=== PATIENT | female | born 1950 | race Caucasian/White ===

== ENCOUNTER 2018-02-27 17:32 | Emergency (ER) | payer MEDICARE ==
[~2018-02-27] VITALS: Ht 154.9 cm; Wt 95.3 kg
[~2018-02-27 17:32] MED LIST: B12-METHYL1000 MCG PO; CLONIDINE0.2 MG PO; D3-55000 IU PO; FLUOXETINE20 MG PO; NORCO 5-325 TA1 EACH PO; PROZAC20 MG PO; TRIAMTERENE/HCT1 CAP PO; ZOFRAN ODT4 MG SL; [UNRECOGNIZED DRUG - OTHER] PO
[2018-02-27 20:25] LABS: BASO # 0.1 10*3/uL (0.0-0.1); BASO % 0.4 % (0.0-1.0); EOS # 0.6 10*3/uL (0.0-0.4); EOS % 5.3 % (1.0-4.0); HEMATOCRIT 40.8 % (37.0-47.0); LYMPH # 2.8 10*3/uL (1.3-4.4); LYMPH % 25.1 % (27.0-41.0); MEAN CELL VOLUME 91.5 fl (81.0-99.0); MEAN CORPUSCULAR HGB 31.4 pg (27.0-31.0); MEAN CORPUSCULAR HGB CONC 34.3 g/dl (33.0-37.0); MONO # 0.7 10*3/uL (0.1-1.0); MONO % 6.6 % (3.0-9.0); NEUT % 62.3 % (47.0-73.0); PLATELET COUNT AUTOMATED 261 10*3/uL (130-400); RED BLOOD COUNT 4.46 10*6/uL (4.10-5.10); RED CELL DISTRI WIDTH 13.9 % (0-14.5); WHITE BLOOD COUNT 11.2 10*3/uL (4.8-10.8)
[2018-02-27 20:49] LABS: BUN 20 mg/dl (7-24); CHLORIDE 101 mmol/L (98-107); CREATININE 1.02 mg/dL (0.55-1.02); POTASSIUM 4.2 mmol/L (3.5-5.1); SODIUM 137 mmol/L (136-145)
== END 2018-02-27 20:50 | disposition home or self-care (01) ==
LOC: ED 17:32
PROVIDERS: Student in an Organized Health Care Education/Training Program
DX: S09.90XA Unspecified injury of head, initial encounter (principal); R11.0 Nausea; M54.2 Cervicalgia; M25.521 Pain in right elbow; Z79.899 Other long term (current) drug therapy; W01.0XXA Fall on same level from slipping, tripping and stumbling without subsequent striking against object, initial encounter; Y93.H3 Activity, building and construction; Y92.22 Religious institution as the place of occurrence of the external cause; Y99.8 Other external cause status

== ENCOUNTER 2018-10-24 06:51 | Inpatient (IN) | payer MEDICARE ==
[~2018-10-24] VITALS: Ht 154.9 cm; Wt 92.5 kg
[2018-10-24] VITALS (14 sets, daily range): BP systolic 160–238; BP diastolic 73–100
--- NOTE | ~2018-10-24 | EKG ---
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
--- NOTE | ~2018-10-24 | EKG ---
[place], [place] ELECTROCARDIOGRAM REPORT NAME: LATRICIA ALVARADO UNIT #: [id number] ROOM: 412 DOCTOR: AURORA DRAFT REPORT BIRTHDATE: [birth year] [facility] Test Date: 2018-10-24 Test Time: 15:26:32 Pat Name: LATRICIA ALVARADO Department: Room: [facility] 2 Gender: F A R Specialist: : 1950 Requested By: JANICE REY Order Number: [id number] Reading MD: Luiz Calvert MD Measurements Intervals [place] Rate: 85 P: 43 FL: 154 QRS: -24 QRSD: 86 T: 30 QT: 376 QTc: 447 Interpretive Statements Sinus rhythm Abnormal R-wave progression, late transition LVH with secondary repolarization abnormality Baseline wander in lead(s) V3,V4 Compared to ECG 10/21/2018 01:42:36 Left ventricular hypertrophy now present Early repolarization now present Electronically Signed On 10-24-2018 15:41:57 PDT by Luiz Calvert MD CM:EKGRPT:ELECTROCARDIOGRAM REPORT [id number] 1541 JANICE TAPIA DRAFT REPORT JANICE REY DO
--- NOTE | ~2018-10-24 | EKG ---
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.[place] : 1950 Requested By: JANICE MONIQUE Order Number: [id number] Reading MD: Luiz Calvert MD Measurements Intervals [place] Rate: 122 P: 68 NC: 140 QRS: -30 QRSD: 75 T: 36 QT: 329 QTc: 469 Interpretive Statements Sinus tachycardia Probable left atrial enlargement Low voltage, precordial leads Consider anterior infarct Minimal ST depression, lateral leads Compared to ECG 10/24/2018 15:26:32 Low QRS voltage now present Myocardial infarct finding now present ST (T wave) deviation now present Sinus rhythm no longer present Left ventricular hypertrophy no longer present Early repolarization no longer present Electronically Signed On 10-26-2018 17:40:49 PDT by Luiz Calvert MD CM:EKGRPT:ELECTROCARDIOGRAM REPORT [id number] 1740 JANICE TAPIA DRAFT REPORT JANICE MONIQUE DO
--- NOTE | ~2018-10-24 | CON ---
[place], [place] REPORT OF CONSULTATION NAME: LATRICIA ALVARADO UNIT #: [id number] ROOM: [facility] DOCTOR: TATO SAWANT CNP BIRTHDATE: [birth year] DOS: 10/26/2018 CHIEF COMPLAINT: "I am really upset. I have been here a week and I am not getting any answers." HISTORY OF PRESENT ILLNESS: This is a 68-year-old white female who presented to the hospital for elevated blood pressure and headache. The patient noted that she had developed a headache and her blood pressure was going up. She was hospitalized for similar symptoms and discharged on 10/22/2018. During that admission, she saw Dr. Carlin for Nephrology as well. The patient had reported that she had been started on lisinopril and had been taking that medication along with clonidine and Dyazide. The patient had reported that she developed nausea and vomiting in the ER. The patient was admitted from the Emergency Room with hypertensive emergency. I spoke with Dr. Carlin who states that she consulted Psychiatry due to the fact that the patient appears to be anxious at times and they are trying to decide if anxiety seems to be correlated with her elevated blood pressure; however, she does have periods of not being anxious and her blood pressure is elevated. The patient has reported that the last few years, she has had increased stress and at times she started to feel anxious and panicky and feels as if she needs to get out of the situation and when she removes herself from the situation her anxiety resolves. The patient's daughter had confirmed with Dr. Carlin that the patient has shown increased anxiety when it comes to shopping and being around a lot of people. It has been more difficult to get her into these type of social situations over the last 2 years. MENTAL STATUS: The patient is alert and oriented to person, place and time. She was somewhat irritable and agitated. There was no overt candy or hypomania noted. No delusions or paranoia noted. No psychotic symptoms noted. No auditory or visual hallucinations noted. Her mood was irritable. Her affect was congruent with her mood. The patient's insight and judgment are fair. Her speech was clear, normal rate and tone. Eye contact was good. The patient appears to be in no acute distress. DIAGNOSIS: Generalized anxiety disorder. PLAN: After meeting with the patient, I discussed trying a p.r.n. Ativan for her anxiety. The patient reports that she is on Prozac and is unsure of what the dosage is, however, she has been on it for years. She declines any change to her Prozac dose and she also declines trying p.r.n. Ativan. She reports that she will discuss this with her family, but does not feel that she needs our services at this time. I discussed my consult with the patient with Dr. Carlin. Should you require any further intervention, please feel free to reconsult us at any time. [place], [place] REPORT OF CONSULTATION NAME: LATRICIA ALVARADO UNIT #: [id number] ROOM: [facility] DOCTOR: TATO SAWANT CNP BIRTHDATE: [birth year] Tato Sawant CNP CM:CONSTR:REPORT OF CONSULTATION 1543 10/27/18 0347 interface
--- NOTE | ~2018-10-24 | EKG ---
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
--- NOTE | ~2018-10-24 | EKG ---
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[place] : 1950 Requested By: KELLE RO Order Number: [id number] Reading MD: Luiz Calvert MD Measurements Intervals [place] Rate: 91 P: 50 MT: 136 QRS: -30 QRSD: 72 T: 37 QT: 340 QTc: 419 Interpretive Statements Sinus rhythm Probable left atrial enlargement Left axis deviation Anteroseptal infarct, age indeterminate Compared to ECG 10/24/2018 15:26:32 Left-axis deviation now present Myocardial infarct finding now present Left ventricular hypertrophy no longer present Early repolarization no longer present Electronically Signed On 10-26-2018 17:39:12 PDT by Luiz Calvert MD CM:EKGRPT:ELECTROCARDIOGRAM REPORT [id number] KELLE RO MD EPIPHANY DRAFT REPORT KELLE RO MD
[~2018-10-24 06:51] MED LIST changes: +ZESTRIL10 MG PO
--- NOTE | 2018-10-24 07:39 | NUR ---
LYING IN BED RESTING WITH EYES CLOSED. FAMILY AT BEDSIDE. SIDE RAILS UP, CALL LIGHT IN REACH.
[2018-10-24 07:42] LABS: BASO % 0.4 % (0.0-1.0); EOS # 0.5 10*3/uL (0.0-0.4); EOS % 6.7 % (1.0-4.0); HEMATOCRIT 40.7 % (37.0-47.0); LYMPH # 2.1 10*3/uL (1.3-4.4); LYMPH % 30.6 % (27.0-41.0); MEAN CELL VOLUME 90.6 fl (81.0-99.0); MEAN CORPUSCULAR HGB 31.2 pg (27.0-31.0); MEAN CORPUSCULAR HGB CONC 34.4 g/dl (33.0-37.0); MEAN PLATELET VOLUME 9.1 fl (9.6-12.3); MONO # 0.6 10*3/uL (0.1-1.0); MONO % 9.2 % (3.0-9.0); NEUT # 3.7 10*3/uL (2.3-7.9); PLATELET COUNT AUTOMATED 296 10*3/uL (130-400); RED BLOOD COUNT 4.49 10*6/uL (4.10-5.10); RED CELL DISTRI WIDTH 13.6 % (0-14.5)
--- NOTE | 2018-10-24 08:00 | NUR ---
HEADACHE BETTER PER PT. "I STILL HAVE IT BUT IT'S BETTER".
[2018-10-24 08:05] LABS: BUN 14 mg/dl (7-24); CHLORIDE 103 mmol/L (98-107); CREATININE 0.96 mg/dL (0.55-1.02); POTASSIUM 3.6 mmol/L (3.5-5.1); SODIUM 137 mmol/L (136-145); TROPONIN I 0.027 ng/ml (<0.045)
--- NOTE | 2018-10-24 09:07 | NUR ---
VISITING WITH FAMILY AT BEDSIDE. CONTINUES TO HAVE MILD HEADACHE.
--- NOTE | 2018-10-24 09:22 | NUR ---
UP TO BATHROOM, TOLERATED WELL. FAMILY AT BEDSIDE
--- NOTE | 2018-10-24 09:46 | NUR ---
LYING IN BED RESTING, EYES CLOSED. TELLS ME "HEADACHE STILL THERE".
--- NOTE | 2018-10-24 10:08 | NUR ---
PT HAD APPROX 200 CC EMESIS OF LIQUID
--- NOTE | 2018-10-24 10:30 | NUR ---
PT CONTINUES TO BE NAUSEATED DESPITE ZOFRAN. DR. ARMENDARIZ AT BEDSIDE
--- NOTE | 2018-10-24 11:00 | NUR ---
A 68, admitted to , under the services of JOCELYNE Casey DO with a diagnosis of HYPERTENSIVE EMERGENCY. Chief complaint is ELEVATED BP, NAUSEA. Patient arrived via wheel chair from ER. Monitor applied. Initial assessment completed. Vital signs taken and recorded. JOCELYNE CASEY DO notified of admission to the unit. Orders received. See assessment for past medical history, medications and allergies. Patient and/or family oriented to unit. [facility] visitation policy reviewed. Clothing/patient valuable form completed. TARA HOANG
--- NOTE | 2018-10-24 11:46 | NUR ---
DR. RO NOTIFIED OF CONSULT
--- NOTE | 2018-10-24 15:26 | NUR ---
DR. REY NOTIFIED OF BP 206/100 AND CONTINUING TO VOMIT. HE ASKS FOR DR. RO TO BE NOTIFIED.
--- NOTE | 2018-10-24 15:45 | NUR ---
SPOKE WITH DR. RO REGARDING ELEVATED BP. SHE AGREES WITH GIVING PHENERGAN, TORADOL, AND BENADRYL IV.
--- NOTE | 2018-10-24 17:01 | NUR ---
SLEEPING WITH EYES CLOSED.
--- NOTE | 2018-10-24 17:49 | NUR ---
WALKED INTO BATHROOM WITH ASSISTANCE. COMPLAINS OF A HEADACHE.
--- NOTE | 2018-10-24 17:50 | NUR ---
BP 178/76 MANUALLY
--- NOTE | 2018-10-24 20:10 | NUR ---
PT RESTING IN BED WITH EYES CLOSED. RESP-EASY AND REGULAR. IVF INFUSING WITH NO PROBLEM. C/O HEADACHE, RATES PAIN 6 ON PAIN SCALE 0-10. MEDICATED WITH MORPHINE IV PER PRN ORDER, SEE EMAR. CALL LIGHT IN REACH. SEE SHIFT ASSESSMENT.
--- NOTE | 2018-10-24 21:00 | NUR ---
RESTING IN BED WITH EYES CLOSED. RESP-EASY AND REGULAR. MEDICATION SEEMS TO BE EFFECTIVE. WILL CON'T TOMONITOR. CALL LIGHT IN REACH.
--- NOTE | 2018-10-24 22:00 | NUR ---
PT RESTING IN BED. RESP-EASY AND REGULAR. STATES MEDIATION HELPED. RATES PAIN 3 ON PAIN SCALE 0-10. IVF INFUSING WITH NO PROBLEM. CALL LIGHT IN REACH.
--- NOTE | 2018-10-24 22:30 | NUR ---
SPOKE WITH DR. MONIQUE MADE AWARE BP. HE WANTS ME TO CALL DR. RO.
--- NOTE | 2018-10-24 22:38 | NUR ---
SPOKE WITH DR. RO REGARDING BP 188/74,190/74, SHE WANT STO SLOWLY BRING BP DOWN. SHE WILL CALL DR. MONIQUE.
--- NOTE | 2018-10-24 22:52 | NUR ---
PERDR. MONIQUE GIVE HYDRALAZINE 5MG, SEE EMAR.
--- NOTE | 2018-10-24 22:56 | NUR ---
GAVE 5MG HYDRALAZINE IV, HR-98-107. BP 188/72 MANUALLY. CALL LIGHT IN REACH. WILL CON'T TO MONITOR.
[2018-10-25] VITALS (11 sets, daily range): BP systolic 118–229; BP diastolic 63–118
--- NOTE | 2018-10-25 00:40 | NUR ---
DR. MONIQUE AT [facility] AWARE DR. RO CALLED AND WANTEDTO ADD LABETOLOL BUT NOT AVAILABLE TO ADD IN EMAR. DR. RO ALSO AWARE. ALSO MADE HIM AWARE TEMP 100 ORALLY.
--- NOTE | 2018-10-25 00:45 | NUR ---
PT RESTING IN BED WITH EYES CLOSED. AWAKENS EASILY. MEDICATED WITH TYLENOL TWO TAB PO PER PRN ORDER, FOR C/O HEADACHE RATES PAIN 3 ON PAIN SCALE 0-10. ALSO TEMP 100 ORALLY. CALL LIGHT IN REACH.
--- NOTE | 2018-10-25 02:44 | NUR ---
24 HR chart check completed.
--- NOTE | 2018-10-25 04:00 | NUR ---
PT RESTING IN BED WITH EYES CLOSED. RESP-EASY AND REGULAR. CALL LIGHT IN REACH.
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
[2018-10-25 05:39] LABS: ALBUMIN 3.3 gm/dl (3.1-4.5); CREATININE 1.29 mg/dL (0.55-1.02); POTASSIUM 3.3 mmol/L (3.5-5.1); TOTAL PROTEIN 7.7 gm/dL (6.4-8.2)
--- NOTE | 2018-10-25 06:02 | NUR ---
PT AWAKE MEDICATED WTIH NORVASC PO PER ORDER, SEE EMAR. BP L ARM 196/84, BP R ARM 192/70. ALSO MEDICATED WITH HYDRALAZINE IV PER ORDER, SEE EMAR. MEDICATED WITH NORCO PO PER PRN ORDER, SEE EMAR FOR C/O HEADACHE, REATES PAIN 5 ON PAIN SCALE 0-10. HR-90'S. CALL LIGHT IN REACH.
[2018-10-25 06:03] LABS: BASO % 0.2 % (0.0-1.0); EOS % 0.1 % (1.0-4.0); HEMATOCRIT 41.5 % (37.0-47.0); HEMOGLOBIN 13.9 g/dl (12.0-16.0); LYMPH # 2.8 10*3/uL (1.3-4.4); LYMPH % 16.2 % (27.0-41.0); MEAN CELL VOLUME 91.8 fl (81.0-99.0); MEAN CORPUSCULAR HGB 30.8 pg (27.0-31.0); MEAN CORPUSCULAR HGB CONC 33.5 g/dl (33.0-37.0); MEAN PLATELET VOLUME 9.2 fl (9.6-12.3); MONO # 1.3 10*3/uL (0.1-1.0); MONO % 7.5 % (3.0-9.0); NEUT % 75.5 % (47.0-73.0); PLATELET COUNT AUTOMATED 376 10*3/uL (130-400); RED BLOOD COUNT 4.52 10*6/uL (4.10-5.10); WHITE BLOOD COUNT 17.2 10*3/uL (4.8-10.8)
--- NOTE | 2018-10-25 06:15 | NUR ---
CALLED DR. MONIQUE MADE AWARE BP AND MEDICATIONS THAT WAS GIVEN.
[2018-10-25 06:16] LABS: ACT PARTIAL THROMBO TIME 23.4 SECONDS (20.8-31.5)
--- NOTE | 2018-10-25 08:15 | NUR ---
ASSUMED CARE OF PATIENT AT THIS TIME. PATIENT SITTING UP IN BED WATCHING TV AND STATES HEADACHE HAS "EASED UP" AFTER EATING BREAKFAST THIS MORNING. NO C/O'S VOICED AT THIS TIME, BLOOD PRESSURE 176/72 IN RIGHT ARM & PULSE 112. SEE SHIFT ASSESSMENT. WILL CONTINUE TO MONITOR PATIENT, BED IN LOWEST/LOCKED POSITION, SIDERAILS UP X2 FOR SAFETY, CALL LIGHT WITHIN REACH.
[2018-10-25 11:49] LABS: BILIRUBIN 2+ (NEGATIVE); BLOOD NEGATIVE (NEGATIVE); CLARITY SL CLOUDY (CLEAR); COLOR YELLOW (YELLOW); GLUCOSE TRACE (NEGATIVE); KETONE 2+ (NEGATIVE); LEUKO ESTERASE NEGATIVE (NEGATIVE); NITRITE NEGATIVE (NEGATIVE); PH 5.5 (5.0-9.0); SPECIFIC GRAVITY 1.025 (1.005-1.030); UROBILINOGEN 0.2 E.U./dl (0.2-1.0)
[2018-10-25 11:57] LABS: BACTERIA 1+; MUCOUS 1+
--- NOTE | 2018-10-25 13:09 | NUR ---
SPOKE WITH DR RO RE: UPDATE ON PATIENT CONDITION. RECEIVED ORDERS TO START PATIENT ON PO COREG 6.25MG BID DUE TO HEART RATE MAINTAINING IN THE 110'S AT THIS TIME. FIRST DOSE OF MEDICATION TO BE GIVEN NOW. SEE MAR. WILL CONTINUE TO MONITOR PATIENT.
--- NOTE | 2018-10-25 16:53 | NUR ---
U NOTIFIED OF NEW CONSULT FOR DR NOWAK.
--- NOTE | 2018-10-25 20:53 | NUR ---
BP ELEVATED 194/118 MANUAL. NOTIFIED. ORDER FOR EKG AND SCHEDULED COREG NOW, NORVASC IN AM, BP TO BE RECHECKED IN 30 MINS.
--- NOTE | 2018-10-25 21:57 | NUR ---
NOTIFED OF 218/80 BP FOLLOWING COREG PER ORDERS. SAID SH WOULD TALK WITH AND HAVE HER TRANSFERRED TO ICU FOR NITROGLYCERIN DRIP. CRIS TONG PERSONAL COUNSELOR MADE AWARE, TALKED WITH CRIS MORGAN IN ICU. SAID PT WILL GO TO ICU ROOM 4.
--- NOTE | 2018-10-25 22:25 | NUR ---
TRANSFERRED TO ICU 4 BY WHEELCHAIR WITHOUT INCIDENT. REPORT GIVEN TO CRIS MORGAN.
[2018-10-26] VITALS (74 sets, daily range): BP systolic 132–187; BP diastolic 65–103
--- NOTE | 2018-10-26 00:05 | NUR ---
RECIEVED PT FROM 4E RN HOPE WITH A BP OF 220/100. DR ARAIZA CONSULTED. NIPRIDE GTT STARTED AT 0.25MCG/KG/MIN AND INCREASED TO 0.75MCG/KG/MIN. BP IS NOW 160/91 BUT HR IS INCREASING TO 165 AND IS SUSTAINED AT 135. DR MONIQUE MADE AWARE OF THIS AND I HAVE STARTED TO DECREASE GTT.
--- NOTE | 2018-10-26 03:35 | NUR ---
NIPRIDE GTT DECREASED TO 0.5MCG/KG/MIN.
[2018-10-26 05:47] LABS: ALBUMIN 3.1 gm/dl (3.1-4.5); POTASSIUM 3.7 mmol/L (3.5-5.1)
[2018-10-26 05:48] LABS: BASO % 0.4 % (0.0-1.0); EOS # 0.2 10*3/uL (0.0-0.4); EOS % 1.6 % (1.0-4.0); HEMOGLOBIN 13.5 g/dl (12.0-16.0); LYMPH # 2.7 10*3/uL (1.3-4.4); LYMPH % 23.3 % (27.0-41.0); MEAN CELL VOLUME 92.6 fl (81.0-99.0); MEAN CORPUSCULAR HGB 30.5 pg (27.0-31.0); MEAN CORPUSCULAR HGB CONC 32.9 g/dl (33.0-37.0); MEAN PLATELET VOLUME 9.1 fl (9.6-12.3); NEUT # 7.5 10*3/uL (2.3-7.9); NEUT % 65.3 % (47.0-73.0); PLATELET COUNT AUTOMATED 325 10*3/uL (130-400); RED BLOOD COUNT 4.43 10*6/uL (4.10-5.10); RED CELL DISTRI WIDTH 14.2 % (0-14.5); WHITE BLOOD COUNT 11.4 10*3/uL (4.8-10.8)
[2018-10-26 05:50] LABS: CREATININE 1.15 mg/dL (0.55-1.02); TOTAL PROTEIN 7.1 gm/dL (6.4-8.2)
--- NOTE | 2018-10-26 19:56 | NUR ---
DISCHARGED VIA AMBULANCE TO [facility]. REPORT GIVEN TO AMBULANCE PERSONNEL. REPORT ALSO GIVEN TO RN AT [facility]. PT IS ALERT AND ORIENTED. NO DISTRESS NOTED. NO C/O'S VOICED AT PRESENT. NIPRIDE GTT MAINTAINED. SEE INTERVENTION SCREEN FOR Q15MIN BP'S. PULSE OX IS 98% ON 2L. CONDITION GUARDED.
[2018-10-29 01:04] LABS: METANEPHRINE, PLASMA <10 pg/mL (0-62); NORMETANEPHRINE, PLASMA 18 pg/mL (0-145)
[2018-12-11] MEDS ORDERED: COZAAR100 MG PO (12:45)
[2018-12-11] MEDS ORDERED: FLUOXETINE HCL20 M2 PO (12:46)
[2018-12-11] MEDS ORDERED: NORVASC10 MG PO (12:47)
[2018-12-11] MEDS ORDERED: HYDROCHLOROTHIA25 M1 PO (12:47)
[2018-12-11] MEDS ORDERED: TOPROL XL50 M1 PO (12:48)
[2018-12-11] MEDS ORDERED: SENNA LAX8.6 M1 PO (12:49)
[2018-12-11] MEDS ORDERED: LIPITOR10 MG PO (12:49)
[2018-12-11] MEDS ORDERED: MECLIZINE HYD12.5 MG PO (12:49)
== END 2018-10-26 19:56 | disposition short-term general hospital (02) | DRG 881 ==
LOC: ED 06:51 → EDHOLD 10:43 → 4E 10:54 → ICCU 10-25 22:00
PROVIDERS: Family Medicine; Internal Medicine; Internal Medicine Nephrology; ADMIT Emergency Medicine
DX: F32.9 Major depressive disorder, single episode, unspecified (principal); I16.1 Hypertensive emergency; E44.0 Moderate protein-calorie malnutrition; N17.9 Acute kidney failure, unspecified; E11.22 Type 2 diabetes mellitus with diabetic chronic kidney disease; E83.52 Hypercalcemia; E11.65 Type 2 diabetes mellitus with hyperglycemia; R00.1 Bradycardia, unspecified; E87.6 Hypokalemia; F41.0 Panic disorder [episodic paroxysmal anxiety]; F41.1 Generalized anxiety disorder; N18.3 Chronic kidney disease, stage 3 (moderate); T50.1X5A Adverse effect of loop [high-ceiling] diuretics, initial encounter; I12.9 Hypertensive chronic kidney disease with stage 1 through stage 4 chronic kidney disease, or unspecified chronic kidney disease; E78.5 Hyperlipidemia, unspecified; E66.9 Obesity, unspecified; Z90.710 Acquired absence of both cervix and uterus; Z98.891 History of uterine scar from previous surgery; Z90.49 Acquired absence of other specified parts of digestive tract; Z82.49 Family history of ischemic heart disease and other diseases of the circulatory system; Z81.8 Family history of other mental and behavioral disorders; Z79.899 Other long term (current) drug therapy; Y92.89 Other specified places as the place of occurrence of the external cause; Z68.38 Body mass index [BMI] 38.0-38.9, adult

== ENCOUNTER → 2018-12-11 | Outpatient (CLI) | payer MEDICARE ==
[~2018-12-11] MED LIST changes: +COZAAR100 MG PO; +FLUOXETINE HCL20 M2 PO; +HYDROCHLOROTHIA25 M1 PO; +LIPITOR10 MG PO; +MECLIZINE HYD12.5 MG PO; +NORVASC10 MG PO; +SENNA LAX8.6 M1 PO; +TOPROL XL50 M1 PO
--- NOTE | ~2018-12-11 | ST ---
[place], [place] EXERCISE STRESS TEST REPORT NAME: LATRICIA ALVARADO UNIT #: [id number] ROOM: DOCTOR: DANYELLE CHASE [facility],BRAIN BIRTHDATE: [birth year] DOS: 12/11/2018 LEXISCAN WITH SESTAMIBI The patient received Lexiscan 0.4 mg over 10 seconds. Heart rate is 77 and isotope was injected. No ischemic changes on the EKG. No complication noted. Sinus rhythm. Myocardial perfusion scan to follow. BRAIN BASSETT MD CM:STRESS:EXERCISE STRESS TEST REPORT [id number] BRAIN BASSETT MD [facility]
== END | disposition home or self-care (01) ==
LOC: CARD 01:15
DX: I10 Essential (primary) hypertension (principal); R06.09 Other forms of dyspnea; R06.02 Shortness of breath; R53.81 Other malaise

== ENCOUNTER → 2019-01-07 | Outpatient (CLI) | payer MEDICARE | END | disposition home or self-care (01) | LOC: LAB 14:09 | DX: R53.83 Other fatigue (principal); D64.9 Anemia, unspecified ==

== ENCOUNTER → 2019-04-23 | Outpatient (CLI) | payer MEDICARE ==
[2019-04-23 14:16] LABS: CREATININE 1.48 mg/dL (0.55-1.02)
== END | disposition home or self-care (01) ==
LOC: LAB 12:59
PROVIDERS: Internal Medicine Cardiovascular Disease
DX: N17.9 Acute kidney failure, unspecified (principal); R53.83 Other fatigue; D64.9 Anemia, unspecified

== ENCOUNTER → 2019-06-15 | Outpatient (CLI) | payer MEDICARE ==
[2019-06-15 11:06] LABS: CREATININE 1.55 mg/dL (0.55-1.02); POTASSIUM 4.5 mmol/L (3.5-5.1)
== END | disposition home or self-care (01) ==
LOC: LAB 09:28
PROVIDERS: Internal Medicine Cardiovascular Disease
DX: I25.118 Atherosclerotic heart disease of native coronary artery with other forms of angina pectoris (principal); E78.00 Pure hypercholesterolemia, unspecified; I10 Essential (primary) hypertension

== ENCOUNTER → 2019-07-24 | Outpatient (CLI) | payer MEDICARE ==
[2019-07-24 15:28] LABS: CREATININE 1.61 mg/dL (0.55-1.02); POTASSIUM 4.4 mmol/L (3.5-5.1)
== END | disposition home or self-care (01) ==
LOC: LAB 13:34
PROVIDERS: Internal Medicine Cardiovascular Disease
DX: N17.9 Acute kidney failure, unspecified (principal); I10 Essential (primary) hypertension; R79.89 Other specified abnormal findings of blood chemistry

== ENCOUNTER 2019-08-21 23:38 | Emergency (ER) | payer MEDICARE ==
[~2019-08-21] VITALS: Ht 152.4 cm; Wt 92.5 kg
[2019-08-22] MEDS ORDERED: APRESOLINE25 MG PO (00:09)
[2019-08-22 00:25] LABS: CLARITY CLEAR (CLEAR); COLOR YELLOW (YELLOW)
[2019-08-22 00:26] LABS: BACTERIA 1+; BILIRUBIN NEGATIVE (NEGATIVE); BLOOD NEGATIVE (NEGATIVE); GLUCOSE NEGATIVE (NEGATIVE); KETONE NEGATIVE (NEGATIVE); LEUKO ESTERASE TRACE (NEGATIVE); NITRITE NEGATIVE (NEGATIVE); PH 6.5 (5.0-9.0); UROBILINOGEN 0.2 E.U./dl (0.2-1.0)
[2019-08-22 00:39] LABS: BASO % 0.4 % (0.0-1.0); EOS # 0.5 10*3/uL (0.0-0.4); EOS % 4.8 % (1.0-4.0); HEMATOCRIT 41.8 % (37.0-47.0); HEMOGLOBIN 13.9 g/dl (12.0-16.0); LYMPH # 2.5 10*3/uL (1.3-4.4); LYMPH % 24.2 % (27.0-41.0); MEAN CELL VOLUME 91.9 fl (81.0-99.0); MEAN CORPUSCULAR HGB 30.5 pg (27.0-31.0); MEAN CORPUSCULAR HGB CONC 33.3 g/dl (33.0-37.0); MEAN PLATELET VOLUME 8.9 fl (9.6-12.3); MONO # 0.9 10*3/uL (0.1-1.0); MONO % 8.8 % (3.0-9.0); NEUT # 6.5 10*3/uL (2.3-7.9); NEUT % 61.6 % (47.0-73.0); PLATELET COUNT AUTOMATED 258 10*3/uL (130-400); RED BLOOD COUNT 4.55 10*6/uL (4.10-5.10); WHITE BLOOD COUNT 10.5 10*3/uL (4.8-10.8)
[2019-08-22 00:54] LABS: ALBUMIN 3.2 gm/dl (3.1-4.5); ALKALINE PHOSPHATASE 117 U/L (45-117); BUN 30 mg/dl (7-24); CHLORIDE 108 mmol/L (98-107); CREATININE 1.59 mg/dL (0.55-1.02); LIPASE 148 U/L (73-393); POTASSIUM 4.3 mmol/L (3.5-5.1); SGOT/AST 28 IU/L (3-35); SGPT/ALT 21 U/L (12-78); SODIUM 138 mmol/L (136-145); TOTAL PROTEIN 7.4 gm/dL (6.4-8.2)
[2019-08-22] MEDS ORDERED: NORCO 5-325 TA1 EACH PO (03:14)
[2019-08-22] MEDS ORDERED: Orphenadrine C100 MG PO (03:14)
[2019-08-22] MEDS ORDERED: PREMARIN30 GM V (03:14)
[2019-08-22] MEDS ORDERED: CLOTRIMAZOLE-745 GM V (03:22)
== END 2019-08-22 03:29 | disposition home or self-care (01) ==
LOC: ED 23:38
PROVIDERS: Emergency Medicine Emergency Medical Services
DX: N95.2 Postmenopausal atrophic vaginitis (principal); M54.31 Sciatica, right side; E66.9 Obesity, unspecified; I12.9 Hypertensive chronic kidney disease with stage 1 through stage 4 chronic kidney disease, or unspecified chronic kidney disease; E11.22 Type 2 diabetes mellitus with diabetic chronic kidney disease; N18.3 Chronic kidney disease, stage 3 (moderate); Z79.899 Other long term (current) drug therapy; Z68.39 Body mass index [BMI] 39.0-39.9, adult; Z79.4 Long term (current) use of insulin

== ENCOUNTER 2019-08-28 21:50 | Inpatient (IN) | payer MEDICARE ==
[~2019-08-28] VITALS: Ht 154.9 cm; Wt 92.5 kg
[~2019-08-28 21:50] MED LIST changes: +APRESOLINE25 MG PO; +CLOTRIMAZOLE-745 GM V; +Orphenadrine C100 MG PO; +PREMARIN30 GM V
[2019-08-28 22:09] VITALS: BP 209/87
[2019-08-28 22:22] VITALS: BP 180/82
--- NOTE | 2019-08-28 22:22 | NUR ---
PHYSICIAN NOTIFIED OF MANUAL BLOOD PRESSURE.
[2019-08-28 22:27] LABS: BASO % 0.4 % (0.0-1.0); EOS # 0.5 10*3/uL (0.0-0.4); EOS % 5.1 % (1.0-4.0); HEMATOCRIT 41.6 % (37.0-47.0); HEMOGLOBIN 13.6 g/dl (12.0-16.0); LYMPH # 2.6 10*3/uL (1.3-4.4); LYMPH % 28.3 % (27.0-41.0); MEAN CELL VOLUME 92.4 fl (81.0-99.0); MEAN CORPUSCULAR HGB 30.2 pg (27.0-31.0); MEAN CORPUSCULAR HGB CONC 32.7 g/dl (33.0-37.0); MEAN PLATELET VOLUME 9.2 fl (9.6-12.3); MONO # 0.8 10*3/uL (0.1-1.0); MONO % 8.5 % (3.0-9.0); NEUT # 5.3 10*3/uL (2.3-7.9); NEUT % 57.4 % (47.0-73.0); PLATELET COUNT AUTOMATED 275 10*3/uL (130-400); RED CELL DISTRI WIDTH 13.9 % (0-14.5); WHITE BLOOD COUNT 9.2 10*3/uL (4.8-10.8)
[2019-08-28 22:41] LABS: ACT PARTIAL THROMBO TIME 27.5 SECONDS (20.0-32.1); INTERNATIONAL NORM RATIO 0.9 (2.0-3.5)
[2019-08-28 22:43] LABS: ALBUMIN 3.3 gm/dl (3.1-4.5); ALKALINE PHOSPHATASE 99 U/L (45-117); BUN 24 mg/dl (7-24); CHLORIDE 109 mmol/L (98-107); CREATININE 1.44 mg/dL (0.55-1.02); POTASSIUM 3.9 mmol/L (3.5-5.1); SGOT/AST 12 IU/L (3-35); SGPT/ALT 21 U/L (12-78); SODIUM 141 mmol/L (136-145); TOTAL PROTEIN 7.3 gm/dL (6.4-8.2)
[2019-08-28 22:51] LABS: TROPONIN I < 0.015 ng/ml (<0.045)
[2019-08-28 22:59] VITALS: BP 198/98
[2019-08-28 23:40] VITALS: BP 180/80
--- NOTE | 2019-08-28 23:40 | NUR ---
PT RESTING IN BED SHE DOES APPEAR UNCOMFORTABLE DUE TO HAVING A HEADACHE. PROVIDER MADE AWARE.
[2019-08-29] VITALS (16 sets, daily range): BP systolic 112–200; BP diastolic 41–95
--- NOTE | 2019-08-29 01:16 | NUR ---
PT HAD LAREG EMESIS ON THE FLOOR. SHE WAS MEDICATED WITH ZOFRAN 4MG IV PER DOCTORS ORDERS.
--- NOTE | 2019-08-29 01:42 | NUR ---
PT NOW RESTING IN BED WITH EYES CLOSED. SHE DOES NOT SEEM TO BE RESTLES AT THIS TIME.
--- NOTE | 2019-08-29 02:38 | NUR ---
PT STILL HAVING EPISODES OF VOMITING. SHE IS ALSO STILL COMPLAINING OF A HEADACHE.
--- NOTE | 2019-08-29 04:20 | NUR ---
PATIENT BEGAN TO EXPERIENCE CHEST PAIN AND PRESSURE. DR. NYE NOTIFIED. WAITING FOR EKG.
--- NOTE | 2019-08-29 04:50 | NUR ---
NITRO GTT INCREASED TO 10. PATIENT STILL EXPERIENCEING CHEST PAIN AND PRESSURE.
--- NOTE | 2019-08-29 05:22 | NUR ---
PATIENT RESPONDED WELL TO THE CARDIZAM BOLUS. HEART RATE DECREASED TO 80'S. BP DROPPED TO 112/60. NITRO GTT DROPPED BACK TO 5
--- NOTE | 2019-08-29 06:15 | NUR ---
PATIENT STATES SHE FEELS MUCH BETTER AT THIS TIME WITH NO CHEST PAIN STATED.
--- NOTE | 2019-08-29 06:23 | NUR ---
PATIENTS NITRO GTT DC AT THIS TIME.
[2019-08-29 07:34] LABS: CREATININE 1.39 mg/dL (0.55-1.02); FREE T4 1.23 ng/dl (0.76-1.46); PHOSPHOROUS 1.9 mg/dL (2.5-4.9)
[2019-08-29 07:40] LABS: THYROID STIM HORMONE (HS) 2.81 uIU/ml (0.358-4.75)
[2019-08-29 07:47] LABS: BASO % 0.2 % (0.0-1.0); EOS % 0.2 % (1.0-4.0); HEMATOCRIT 43.7 % (37.0-47.0); HEMOGLOBIN 14.1 g/dl (12.0-16.0); LYMPH # 1.4 10*3/uL (1.3-4.4); LYMPH % 10.9 % (27.0-41.0); MEAN CELL VOLUME 92.4 fl (81.0-99.0); MEAN CORPUSCULAR HGB 29.8 pg (27.0-31.0); MEAN CORPUSCULAR HGB CONC 32.3 g/dl (33.0-37.0); MEAN PLATELET VOLUME 9.2 fl (9.6-12.3); MONO # 0.5 10*3/uL (0.1-1.0); MONO % 3.5 % (3.0-9.0); NEUT # 11.3 10*3/uL (2.3-7.9); NEUT % 84.9 % (47.0-73.0); PLATELET COUNT AUTOMATED 293 10*3/uL (130-400); RED BLOOD COUNT 4.73 10*6/uL (4.10-5.10); RED CELL DISTRI WIDTH 14.3 % (0-14.5); WHITE BLOOD COUNT 13.3 10*3/uL (4.8-10.8)
--- NOTE | 2019-08-29 08:27 | NUR ---
PT WAS C/O HEADACHE PT STATED THAT TYLENOL HELPED WHITH HEADACHE THAT SHE WAS GIVEN AT APROX MIDNIGHT SPOKE WITH DR ONTIVEROS WOH ORDERED MORE TYLENOL PT BEGAN TO HAVE EMISIS APROX 15 MIN POST TYLENOL SPOKE WITH DR ONTIVEROS WHO IS ORDERING ZOFRAN IV FOR PT WE ARE STILL AWAITING A ROOM FOR PATIENT
--- NOTE | 2019-08-29 08:50 | NUR ---
A 68, admitted to , under the services of JOCELYNE Casey DO with a diagnosis of HTN,A-FIB. Chief complaint is CHEST PAIN Patient arrived via from ER. Monitor applied. Initial assessment completed. Vital signs taken and recorded. JOCELYNE CASEY DO notified of admission to the unit. Orders received. See assessment for past medical history, medications and allergies. Patient and/or family oriented to unit. [facility] visitation policy reviewed. Clothing/patient valuable form completed. TARA HOANG
[2019-08-29] MEDS ORDERED: TOPROL XL100 MG PO (09:14)
[2019-08-29] MEDS ORDERED: APRESOLINE25 MG PO (09:15)
[2019-08-29] MEDS ORDERED: AMARYL4 MG PO (09:16)
--- NOTE | 2019-08-29 09:18 | NUR ---
A 68, admitted to , under the services of JOCELYNE Casey DO with a diagnosis of MALIGNANT HYPERTENSION,AFIB,CHEST PAIN. Chief complaint is HEADACHE. Patient arrived via stretcher from ER. Monitor applied. Initial assessment completed. Vital signs taken and recorded. JOCELYNE CASEY DO notified of admission to the unit. Orders received. See assessment for past medical history, medications and allergies. Patient and/or family oriented to unit. [facility] visitation policy reviewed. Clothing/patient valuable form completed. JOANNA MADISON
--- NOTE | 2019-08-29 10:25 | NUR ---
DR. HIRSCH ANSWERING SERVICE AWARE OF CONSULT.
--- NOTE | 2019-08-29 11:35 | NUR ---
CARDIZEM GTT OFF PO CARDIZEM AND LISINOPRIL GIVEN.
--- NOTE | 2019-08-29 12:05 | NUR ---
PATIENT HAD ANOTHER EMESIS AND VOMITIED LISINOPRIL AND CARDIZEM PO. DR. HIRSCH STILL HERE AND GAVE ORDER FOR IV PHENERGAN. ATTEMPTED TO CALL RSIDENT PHONE.
--- NOTE | 2019-08-29 12:56 | NUR ---
MEDICATED WITH PHENERGAN,TORODL,VASOTEC IV.
--- NOTE | 2019-08-29 22:07 | NUR ---
DR NICHOLAS NOTIFIED OF PT'S BP.
[2019-08-30] VITALS (12 sets, daily range): BP systolic 166–208; BP diastolic 58–98
--- NOTE | 2019-08-30 00:41 | NUR ---
MORPHINE GIVEN FOR C/O HEADACHE PAIN RATED 5/10. CALL LIGHT IN REACH.
--- NOTE | 2019-08-30 01:06 | NUR ---
dr schmidt notified of pt's elevated bp, states he will put orders in.
--- NOTE | 2019-08-30 01:26 | NUR ---
MORPHINE EFFECTIVE FOR PAIN PER PT HEADACHE PAIN RATED 2/10. 1X HYDRALAZINE 5 MG GIVEN AT THIS TIME FOR HTN, WILL RECHECK BP. CALL LIGHT IN REACH/
--- NOTE | 2019-08-30 02:13 | NUR ---
ZOFRAN GIVEN FOR C/O NAUSEA, WILL MONTIOR.
--- NOTE | 2019-08-30 02:52 | NUR ---
ZOFRAN EFFECTIVE PER PT.
--- NOTE | 2019-08-30 03:39 | NUR ---
PATIENT C/O BLE LEGS HURTING, TYLENOL PROVIDED FOR PAIN. PATIENT PACING ABOUT ROOM.
--- NOTE | 2019-08-30 03:45 | NUR ---
1X HYDRALAZINE 10 MG GIVEN FOR HTN. WILL MONITOR.
--- NOTE | 2019-08-30 04:00 | NUR ---
PATIENT CALLS THIS NURSE TO ROOM FOR PAIN TO BLE LEGS, PATIENT IS PACING IN ROOM. DR NICHOLAS NOTIFIED AND STATES TO GIVE NORCO AND HE WILL ADD VISTARIL.
[2019-08-30 07:30] LABS: BASO % 0.3 % (0.0-1.0); EOS % 0.3 % (1.0-4.0); HEMATOCRIT 44.3 % (37.0-47.0); HEMOGLOBIN 14.4 g/dl (12.0-16.0); LYMPH # 1.5 10*3/uL (1.3-4.4); LYMPH % 11.2 % (27.0-41.0); MEAN CELL VOLUME 93.3 fl (81.0-99.0); MEAN CORPUSCULAR HGB 30.3 pg (27.0-31.0); MEAN CORPUSCULAR HGB CONC 32.5 g/dl (33.0-37.0); MEAN PLATELET VOLUME 9.1 fl (9.6-12.3); MONO % 7.4 % (3.0-9.0); NEUT # 10.9 10*3/uL (2.3-7.9); NEUT % 80.4 % (47.0-73.0); PLATELET COUNT AUTOMATED 291 10*3/uL (130-400); RED BLOOD COUNT 4.75 10*6/uL (4.10-5.10); RED CELL DISTRI WIDTH 14.6 % (0-14.5); WHITE BLOOD COUNT 13.6 10*3/uL (4.8-10.8)
[2019-08-30 07:45] LABS: CREATININE 1.63 mg/dL (0.55-1.02); POTASSIUM 3.7 mmol/L (3.5-5.1)
--- NOTE | 2019-08-30 07:46 | NUR ---
NOTIFIED DR. MONIQUE OF BLOOD PRESSURE,HEADACHE,FLUSHED ARMS/FACE,NAUSEA. BP 180/92 MANUAL.
[2019-08-30 09:46] LABS: BILIRUBIN NEGATIVE (NEGATIVE); CLARITY SL CLOUDY (CLEAR); COLOR YELLOW (YELLOW); GLUCOSE NEGATIVE (NEGATIVE); KETONE 2+ (NEGATIVE)
[2019-08-30 09:47] LABS: BLOOD 1+ (NEGATIVE); UROBILINOGEN 0.2 E.U./dl (0.2-1.0)
[2019-08-30 09:48] LABS: BACTERIA 2+; CALCIUM OXALATE CRYSTALS 2+; LEUKO ESTERASE NEGATIVE (NEGATIVE); NITRITE NEGATIVE (NEGATIVE)
--- NOTE | 2019-08-30 13:40 | NUR ---
DR. RO NOTIFIED OF CANSULT NEW ORDER RECEIVED.
--- NOTE | 2019-08-30 16:54 | NUR ---
U NOTIFIED OF CONSULT.
[2019-08-31] VITALS (7 sets, daily range): BP systolic 132–210; BP diastolic 57–90
--- NOTE | 2019-08-31 06:52 | NUR ---
DR NICHOLAS NOTIFIED OF ELEVATED BP AND THAT DOSE OF CLONIDINE PO GIVEN. STATES REASSESS IN 1 HR
--- NOTE | 2019-08-31 07:30 | NUR ---
ASSESSMENT COMPLETED AND DOCUMENTED. PT RESTING IN BED COMFORTABLY AND ARISES EASILY TO TOUCH. PT DOES NOT WANT TO ORDER BREAKFAST AT THIS TIME. NO C/O PAIN OR HEADACHES AT THIS TIME. CALL LIGHT IN REACH. LORELEI SPKENCC
[2019-08-31 07:49] LABS: BASO # 0.1 10*3/uL (0.0-0.1); BASO % 0.5 % (0.0-1.0); EOS # 0.3 10*3/uL (0.0-0.4); EOS % 2.9 % (1.0-4.0); HEMATOCRIT 41.6 % (37.0-47.0); HEMOGLOBIN 13.2 g/dl (12.0-16.0); LYMPH # 2.5 10*3/uL (1.3-4.4); MEAN CORPUSCULAR HGB 30.1 pg (27.0-31.0); MEAN CORPUSCULAR HGB CONC 31.7 g/dl (33.0-37.0); MEAN PLATELET VOLUME 9.1 fl (9.6-12.3); MONO # 0.9 10*3/uL (0.1-1.0); MONO % 9.2 % (3.0-9.0); NEUT # 5.8 10*3/uL (2.3-7.9); NEUT % 61.2 % (47.0-73.0); PLATELET COUNT AUTOMATED 266 10*3/uL (130-400); RED BLOOD COUNT 4.38 10*6/uL (4.10-5.10); RED CELL DISTRI WIDTH 14.6 % (0-14.5); WHITE BLOOD COUNT 9.5 10*3/uL (4.8-10.8)
--- NOTE | 2019-08-31 07:55 | NUR ---
MANUAL BP 190/90 ON ASSESSMENT AND HR 88 AT THIS TIME. IV NORMADINE 20MG GIVEN ORDERED. SLOW IVP PER INSTRUCTOR. PT TOLERATED WELL. APICAL HR NOW 78 AND MANUAL BP RECHECKED AND IS 140/68 AT THIS TIME. LORELEI HOANG
[2019-08-31 08:05] LABS: ALBUMIN 3.1 gm/dl (3.1-4.5); CREATININE 1.36 mg/dL (0.55-1.02)
--- NOTE | 2019-08-31 09:00 | NUR ---
Lockstitcher in to talk to patient. Patient states lives at home with . There are no steps in the home. Physician: marla elizondo [facility]acy: [facility] [place] [facility]: none Patient's level of ADLs: INDEPENDENT Patient has working utilities: all working DME: none Follow-up physician's appointment after d/c: will be made by hospitalist nurse director upon discharge Does patient want to access PORTAL?: no Discharge plan discussed with patient, she states she lives at home with , she is independent in adls and ambulation, she states she will return home when medically stable and denies any home needs, case management will follow. FREDERICK MCCRARY
--- NOTE | 2019-08-31 09:53 | NUR ---
PT GETTING ECHO AT BEDSIDE. LORELEI SPNRCC
--- NOTE | 2019-08-31 11:50 | NUR ---
ASSESSMENT COMPLETED AND DOCUMENTED. PT IS RESTING COMFORTABLY IN THE CHAIR WITH NO COMPLAINTS AT THIS TIME. LORELEI HOANG
--- NOTE | 2019-08-31 13:39 | NUR ---
PT BACK IN BED ORDERING LUNCH. NO C/O AT THIS TIME. CALL LIGHT IN REACH. REPORT GIVEN TO CRIS SABILLON. LORELEI SPNRCC
[2019-08-31 15:58] LABS: VITAMIN D, 25-HYDROXY 37.3 ng/mL (30-100)
[2019-09-01] VITALS: BP 188/73
--- NOTE | 2019-09-01 | NUR ---
PT RESTING IN BED WITH EYES CLOSED, AWAKENS WITH EASE. RESP NONLABORED. NO ACUTE DISTRESS NOTED. NO COMPLAINTS VOICED. CHUY PATENT.
[2019-09-01 01:00] VITALS: BP 120/54
--- NOTE | 2019-09-01 01:02 | NUR ---
PT BP CHECKED MANUALLY AND IS 120/54.
[2019-09-01 08:00] VITALS: BP 122/52
--- NOTE | 2019-09-01 09:00 | NUR ---
case management visits with patient, she states she will return home when medically stable and denies any home needs
[2019-09-01 12:00] VITALS: BP 145/59
[2019-09-01 12:04] LABS: CREATININE,URINE 75.9 mg/dL (Not Estab.)
[2019-09-01] MEDS ORDERED: XARE20MG PO (14:45)
[2019-09-01] MEDS ORDERED: MINOXIDIL2.5 MG PO (14:45)
[2019-09-01] MEDS ORDERED: CARDIZEM CD120 M2 PO (14:45)
[2019-09-01] MEDS ORDERED: FLUOXETINE HYDR20 M1 PO (14:45)
[2019-09-01] MEDS ORDERED: CLONAZEPAM0.5 M2 PO (14:45)
--- NOTE | 2019-09-01 16:32 | NUR ---
PATIENT DISCHARGED TO HOME. ALL PERSONAL BELONGINGS SENT WITH PATIENT. IV DISCONTINUED. DISCHARGE INSTRUCTIONS GIVEN AND REVIEWED WITH PATIENT AND SPOUSE. PRESCRIPTIONS FILLED AT [facility] AND PICKED THEM UP.
== END 2019-09-01 16:32 | disposition home or self-care (01) | DRG 308 ==
LOC: ED 21:50 → 4E 08-29 06:40 → EDHOLD 08-29 06:40 → 4E 08-29 08:47
PROVIDERS: Emergency Medicine Emergency Medical Services; Internal Medicine; Internal Medicine Nephrology; Student in an Organized Health Care Education/Training Program; ADMIT Emergency Medicine
DX: I48.0 Paroxysmal atrial fibrillation (principal); N17.0 Acute kidney failure with tubular necrosis; I16.1 Hypertensive emergency; E87.8 Other disorders of electrolyte and fluid balance, not elsewhere classified; E11.65 Type 2 diabetes mellitus with hyperglycemia; E11.22 Type 2 diabetes mellitus with diabetic chronic kidney disease; E83.39 Other disorders of phosphorus metabolism; I12.9 Hypertensive chronic kidney disease with stage 1 through stage 4 chronic kidney disease, or unspecified chronic kidney disease; E78.5 Hyperlipidemia, unspecified; M32.9 Systemic lupus erythematosus, unspecified; T50.905A Adverse effect of unspecified drugs, medicaments and biological substances, initial encounter; F41.1 Generalized anxiety disorder; F32.9 Major depressive disorder, single episode, unspecified; E66.01 Morbid (severe) obesity due to excess calories; N18.3 Chronic kidney disease, stage 3 (moderate); Z79.899 Other long term (current) drug therapy; Z90.49 Acquired absence of other specified parts of digestive tract; Z82.49 Family history of ischemic heart disease and other diseases of the circulatory system; Z82.0 Family history of epilepsy and other diseases of the nervous system; Z68.38 Body mass index [BMI] 38.0-38.9, adult; Y92.89 Other specified places as the place of occurrence of the external cause; Z88.8 Allergy status to other drugs, medicaments and biological substances

== ENCOUNTER → 2019-09-22 | Outpatient (CLI) | payer MEDICARE ==
[~2019-09-22] MED LIST changes: +AMARYL4 MG PO; +CARDIZEM CD120 M2 PO; +CLONAZEPAM0.5 M2 PO; +FLUOXETINE HYDR20 M1 PO; +MINOXIDIL2.5 MG PO; +TOPROL XL100 MG PO; +XARE20MG PO
== END | disposition home or self-care (01) ==
LOC: US 08-28 07:30
DX: N26.1 Atrophy of kidney (terminal) (principal); N28.1 Cyst of kidney, acquired

== ENCOUNTER → 2019-12-22 | Outpatient (CLI) | payer MEDICARE | END | disposition home or self-care (01) | LOC: CT 10:43 | DX: R91.1 Solitary pulmonary nodule (principal) ==

== ENCOUNTER → 2020-03-18 | Outpatient (CLI) | payer MEDICARE | END | disposition home or self-care (01) | LOC: RESCLI 01:25 | PROVIDERS: ATTEND Emergency Medicine | DX: I48.91 Unspecified atrial fibrillation (principal); I12.9 Hypertensive chronic kidney disease with stage 1 through stage 4 chronic kidney disease, or unspecified chronic kidney disease; N18.3 Chronic kidney disease, stage 3 (moderate); R00.1 Bradycardia, unspecified; F32.9 Major depressive disorder, single episode, unspecified; E78.5 Hyperlipidemia, unspecified; E11.9 Type 2 diabetes mellitus without complications; R52 Pain, unspecified; K21.9 Gastro-esophageal reflux disease without esophagitis; Z79.82 Long term (current) use of aspirin; Z79.899 Other long term (current) drug therapy; Z90.49 Acquired absence of other specified parts of digestive tract; Z98.890 Other specified postprocedural states; Z90.710 Acquired absence of both cervix and uterus ==

== ENCOUNTER → 2020-04-20 | Outpatient (CLI) | payer MEDICARE ==
[2020-04-20 10:49] LABS: BASO % 0.4 % (0.0-1.0); EOS # 0.4 10*3/uL (0.0-0.4); EOS % 4.4 % (1.0-4.0); HEMATOCRIT 38.3 % (37.0-47.0); LYMPH # 2.3 10*3/uL (1.3-4.4); LYMPH % 25.1 % (27.0-41.0); MEAN CELL VOLUME 87.4 fl (81.0-99.0); MEAN CORPUSCULAR HGB 28.3 pg (27.0-31.0); MEAN CORPUSCULAR HGB CONC 32.4 g/dl (33.0-37.0); MEAN PLATELET VOLUME 8.9 fl (9.6-12.3); MONO # 0.9 10*3/uL (0.1-1.0); MONO % 9.6 % (3.0-9.0); NEUT # 5.6 10*3/uL (2.3-7.9); NEUT % 60.3 % (47.0-73.0); PLATELET COUNT AUTOMATED 363 10*3/uL (130-400); RED BLOOD COUNT 4.38 10*6/uL (4.10-5.10); RED CELL DISTRI WIDTH 13.6 % (0-14.5); WHITE BLOOD COUNT 9.3 10*3/uL (4.8-10.8)
[2020-04-20 11:18] LABS: CREATININE 1.43 mg/dL (0.55-1.02); POTASSIUM 4.2 mmol/L (3.5-5.1); TOTAL PROTEIN 7.2 gm/dL (6.4-8.2)
== END | disposition home or self-care (01) ==
LOC: LAB 09:06
PROVIDERS: ATTEND Internal Medicine Nephrology
DX: I12.9 Hypertensive chronic kidney disease with stage 1 through stage 4 chronic kidney disease, or unspecified chronic kidney disease (principal); E11.22 Type 2 diabetes mellitus with diabetic chronic kidney disease; N18.3 Chronic kidney disease, stage 3 (moderate)

== ENCOUNTER → 2020-05-09 | Outpatient (CLI) | payer MEDICARE ==
[2020-05-09 16:49] LABS: BASO % 0.4 % (0.0-1.0); EOS # 0.4 10*3/uL (0.0-0.4); EOS % 4.4 % (1.0-4.0); HEMATOCRIT 34.8 % (37.0-47.0); LYMPH # 2.5 10*3/uL (1.3-4.4); LYMPH % 26.8 % (27.0-41.0); MEAN CELL VOLUME 86.4 fl (81.0-99.0); MEAN CORPUSCULAR HGB 28.5 pg (27.0-31.0); MEAN PLATELET VOLUME 8.9 fl (9.6-12.3); MONO # 0.9 10*3/uL (0.1-1.0); NEUT # 5.3 10*3/uL (2.3-7.9); NEUT % 58.2 % (47.0-73.0); PLATELET COUNT AUTOMATED 335 10*3/uL (130-400); RED BLOOD COUNT 4.03 10*6/uL (4.10-5.10); RED CELL DISTRI WIDTH 13.2 % (0-14.5); WHITE BLOOD COUNT 9.1 10*3/uL (4.8-10.8)
[2020-05-09 17:17] LABS: CREATININE 1.47 mg/dL (0.55-1.02); POTASSIUM 3.5 mmol/L (3.5-5.1); TOTAL PROTEIN 7.2 gm/dL (6.4-8.2)
== END | disposition home or self-care (01) ==
LOC: LAB 16:19
PROVIDERS: ATTEND Internal Medicine Nephrology
DX: I12.9 Hypertensive chronic kidney disease with stage 1 through stage 4 chronic kidney disease, or unspecified chronic kidney disease (principal); E11.22 Type 2 diabetes mellitus with diabetic chronic kidney disease; N18.30 Chronic kidney disease, stage 3 unspecified; N26.1 Atrophy of kidney (terminal)

== ENCOUNTER → 2020-08-02 | Outpatient (CLI) | payer MEDICARE ==
[~2020-08-02] MED LIST changes: +NAPROXEN250 MG PO; +ROBAXIN-750750 MG PO
== END | disposition home or self-care (01) ==
LOC: RESCLI 00:05
PROVIDERS: ATTEND Internal Medicine
DX: I48.91 Unspecified atrial fibrillation (principal); I10 Essential (primary) hypertension; F32.9 Major depressive disorder, single episode, unspecified; E78.5 Hyperlipidemia, unspecified; E11.9 Type 2 diabetes mellitus without complications; R52 Pain, unspecified; K21.9 Gastro-esophageal reflux disease without esophagitis; Z79.899 Other long term (current) drug therapy

== ENCOUNTER 2020-09-01 10:19 | Emergency (ER) | payer MEDICARE ==
[~2020-09-01] VITALS: Ht 154.9 cm; Wt 90.7 kg
[~2020-09-01 10:19] MED LIST changes: -NAPROXEN250 MG PO; -ROBAXIN-750750 MG PO
== END 2020-09-01 12:31 | disposition home or self-care (01) ==
LOC: ED 10:19
DX: M79.672 Pain in left foot (principal); M25.572 Pain in left ankle and joints of left foot; I12.9 Hypertensive chronic kidney disease with stage 1 through stage 4 chronic kidney disease, or unspecified chronic kidney disease; E11.22 Type 2 diabetes mellitus with diabetic chronic kidney disease; N18.30 Chronic kidney disease, stage 3 unspecified; F41.9 Anxiety disorder, unspecified; E78.5 Hyperlipidemia, unspecified; Z88.8 Allergy status to other drugs, medicaments and biological substances; Z79.899 Other long term (current) drug therapy

== ENCOUNTER 2020-09-18 21:24 | Emergency (ER) | payer MEDICARE ==
[~2020-09-18] VITALS: Ht 154.9 cm; Wt 95.3 kg
[2020-09-18] MEDS ORDERED: NAPROXEN250 MG PO (21:50)
[2020-09-18] MEDS ORDERED: ROBAXIN-750750 MG PO (21:50)
== END 2020-09-18 22:19 | disposition home or self-care (01) ==
LOC: ED 21:24
DX: M54.12 Radiculopathy, cervical region (principal); I12.9 Hypertensive chronic kidney disease with stage 1 through stage 4 chronic kidney disease, or unspecified chronic kidney disease; E11.22 Type 2 diabetes mellitus with diabetic chronic kidney disease; N18.9 Chronic kidney disease, unspecified; E78.00 Pure hypercholesterolemia, unspecified; F41.9 Anxiety disorder, unspecified; Z88.8 Allergy status to other drugs, medicaments and biological substances; Z79.899 Other long term (current) drug therapy; Z79.2 Long term (current) use of antibiotics; Z90.711 Acquired absence of uterus with remaining cervical stump; Z98.890 Other specified postprocedural states; Z90.49 Acquired absence of other specified parts of digestive tract

== ENCOUNTER → 2021-02-20 | Outpatient (CLI) | payer MEDICARE ==
[~2021-02-20] MED LIST changes: +CYCLOBENZAPRINE10 MG PO; +HYDROCODONE-AC1 EAC1 PO; +NAPROXEN250 MG PO; +ROBAXIN-750750 MG PO
[2021-02-20 10:26] LABS: BASO # 0.1 10*3/uL (0.0-0.1); BASO % 0.7 % (0.0-1.0); EOS # 0.6 10*3/uL (0.0-0.4); EOS % 7.1 % (1.0-4.0); HEMATOCRIT 37.2 % (37.0-47.0); LYMPH % 21.9 % (27.0-41.0); MEAN CELL VOLUME 81.9 fl (81.0-99.0); MEAN CORPUSCULAR HGB 25.1 pg (27.0-31.0); MEAN CORPUSCULAR HGB CONC 30.6 g/dl (33.0-37.0); MEAN PLATELET VOLUME 9.1 fl (9.6-12.3); MONO # 0.7 10*3/uL (0.1-1.0); MONO % 8.2 % (3.0-9.0); NEUT # 5.6 10*3/uL (2.3-7.9); NEUT % 61.9 % (47.0-73.0); PLATELET COUNT AUTOMATED 363 10*3/uL (130-400); RED BLOOD COUNT 4.54 10*6/uL (4.10-5.10); RED CELL DISTRI WIDTH 15.2 % (0-14.5)
[2021-02-20 10:52] LABS: ALBUMIN 3.3 gm/dl (3.1-4.5); CREATININE 1.35 mg/dL (0.55-1.02); TOTAL PROTEIN 7.5 gm/dL (6.4-8.2)
[2021-02-20 10:59] LABS: THYROID STIM HORMONE (HS) 3.03 uIU/ml (0.358-4.75)
[2021-02-20 11:25] LABS: VITAMIN D, 25-HYDROXY 56.2 ng/mL (30-100)
== END | disposition home or self-care (01) ==
LOC: LAB 00:20 → MAMMO 10:30 → LAB 10:30
PROVIDERS: ATTEND Internal Medicine Nephrology
DX: Z12.31 Encounter for screening mammogram for malignant neoplasm of breast (principal); M19.011 Primary osteoarthritis, right shoulder; I12.9 Hypertensive chronic kidney disease with stage 1 through stage 4 chronic kidney disease, or unspecified chronic kidney disease; E11.22 Type 2 diabetes mellitus with diabetic chronic kidney disease; N18.31 Chronic kidney disease, stage 3a; M25.511 Pain in right shoulder; Z79.899 Other long term (current) drug therapy

== ENCOUNTER 2021-03-06 05:55 | Emergency (ER) | payer MEDICARE ==
[~2021-03-06 05:55] MED LIST changes: -CYCLOBENZAPRINE10 MG PO; -HYDROCODONE-AC1 EAC1 PO
[2021-03-06 07:05] LABS: HEMATOCRIT 35.3 % (37.0-47.0); MEAN CELL VOLUME 80.6 fl (81.0-99.0); MEAN CORPUSCULAR HGB 25.8 pg (27.0-31.0); MEAN PLATELET VOLUME 8.9 fl (9.6-12.3); PLATELET COUNT AUTOMATED 365 10*3/uL (130-400); RED BLOOD COUNT 4.38 10*6/uL (4.10-5.10); RED CELL DISTRI WIDTH 15.4 % (0-14.5); WHITE BLOOD COUNT 12.1 10*3/uL (4.8-10.8)
[2021-03-06 07:20] LABS: ALBUMIN 3.3 gm/dl (3.1-4.5); CREATININE 1.52 mg/dL (0.55-1.02); POTASSIUM 3.7 mmol/L (3.5-5.1); TOTAL PROTEIN 7.7 gm/dL (6.4-8.2)
[2021-03-06 08:20] LABS: BILIRUBIN Negative (Negative); BLOOD Negative (Negative); CLARITY Cloudy (Clear); COLOR Yellow (Yellow); GLUCOSE Negative (Negative); KETONE Trace (Negative); LEUKO ESTERASE Negative (Negative); NITRITE Negative (Negative); PH 5.5 (4.5-8.0); SPECIFIC GRAVITY 1.025 (1.001-1.030)
[2021-03-06 08:28] LABS: RBC 0-2 rbc/hpf (0-2)
[2021-03-06 08:29] LABS: EPITHELIAL CELLS 41-50
[2021-03-06 08:30] LABS: BACTERIA 3+; YEAST TRACE
[2021-03-06] MEDS ORDERED: HYDROCODONE-AC1 EAC1 PO (08:51)
[2021-03-06] MEDS ORDERED: CYCLOBENZAPRINE10 MG PO (08:51)
[2021-03-06 13:23] LABS: BASO % 0.3 % (0.0-1.0); EOS # 0.5 10*3/uL (0.0-0.4); EOS % 4.1 % (1.0-4.0); LYMPH # 1.4 10*3/uL (1.3-4.4); LYMPH % 11.7 % (27.0-41.0); MONO # 0.9 10*3/uL (0.1-1.0); MONO % 7.1 % (3.0-9.0); NEUT # 9.2 10*3/uL (2.3-7.9); NEUT % 76.5 % (47.0-73.0)
== END 2021-03-06 08:58 | disposition home or self-care (01) ==
LOC: ED 05:55
PROVIDERS: Emergency Medicine
DX: M54.5 Low back pain (principal); R10.9 Unspecified abdominal pain; R11.0 Nausea; E11.22 Type 2 diabetes mellitus with diabetic chronic kidney disease; I12.9 Hypertensive chronic kidney disease with stage 1 through stage 4 chronic kidney disease, or unspecified chronic kidney disease; N18.30 Chronic kidney disease, stage 3 unspecified; F41.9 Anxiety disorder, unspecified; F32.9 Major depressive disorder, single episode, unspecified; E78.5 Hyperlipidemia, unspecified; I48.91 Unspecified atrial fibrillation; Z87.442 Personal history of urinary calculi; Z79.899 Other long term (current) drug therapy; Z90.711 Acquired absence of uterus with remaining cervical stump; Z98.890 Other specified postprocedural states; Z90.49 Acquired absence of other specified parts of digestive tract

== ENCOUNTER → 2021-08-07 | Outpatient (CLI) | payer MEDICARE ==
[~2021-08-07] MED LIST changes: +CYCLOBENZAPRINE10 MG PO; +HYDROCODONE-AC1 EAC1 PO
== END | disposition home or self-care (01) ==
LOC: COVID19 16:35
PROVIDERS: ATTEND Student in an Organized Health Care Education/Training Program
DX: U07.1 COVID-19 (principal)

== ENCOUNTER → 2021-10-20 | Outpatient (CLI) | payer MEDICARE | END | disposition home or self-care (01) | LOC: RESCLI 03:41 | PROVIDERS: ATTEND Internal Medicine | DX: I48.91 Unspecified atrial fibrillation (principal); E11.9 Type 2 diabetes mellitus without complications; I10 Essential (primary) hypertension; F32.9 Major depressive disorder, single episode, unspecified; E78.5 Hyperlipidemia, unspecified; K21.9 Gastro-esophageal reflux disease without esophagitis; Z79.899 Other long term (current) drug therapy; Z79.82 Long term (current) use of aspirin ==

== ENCOUNTER 2022-07-05 08:09 | Inpatient (IN) | payer MEDICARE ==
[2022-07-05] VITALS (8 sets, daily range): BP systolic 178–210; BP diastolic 70–104
[~2022-07-05] VITALS: Ht 154.9 cm; Wt 94.1 kg
[2022-07-05 08:53] LABS: BASO # 0.1 10*3/uL (0.0-0.1); BASO % 0.6 % (0.0-1.0); EOS # 0.5 10*3/uL (0.0-0.4); EOS % 4.9 % (1.0-4.0); HEMATOCRIT 40.7 % (37.0-47.0); LYMPH % 19.6 % (27.0-41.0); MEAN CELL VOLUME 82.9 fl (81.0-99.0); MEAN CORPUSCULAR HGB 29.1 pg (27.0-31.0); MEAN CORPUSCULAR HGB CONC 35.1 g/dl (33.0-37.0); MEAN PLATELET VOLUME 8.6 fl (9.6-12.3); MONO # 0.9 10*3/uL (0.1-1.0); MONO % 8.9 % (3.0-9.0); NEUT # 6.8 10*3/uL (2.3-7.9); NEUT % 65.7 % (47.0-73.0); PLATELET COUNT AUTOMATED 280 10*3/uL (130-400); RED BLOOD COUNT 4.91 10*6/uL (4.10-5.10); RED CELL DISTRI WIDTH 16.4 % (0-14.5); WHITE BLOOD COUNT 10.4 10*3/uL (4.8-10.8)
[2022-07-05 09:09] LABS: ALKALINE PHOSPHATASE 121 U/L (46-116); BUN 13 mg/dl (9-23); CHLORIDE 97 mmol/L (98-107); CREATININE 1.13 mg/dL (0.55-1.02); LIPASE 34 U/L (12-53); POTASSIUM 4.2 mmol/L (3.4-5.1); SGPT/ALT 11 U/L (10-49); SODIUM 131 mmol/L (136-145)
[2022-07-05] MEDS ORDERED: HYDR25T PO (10:30)
[2022-07-05] MEDS ORDERED: PANTOPRAZOLE SO40 MG PO (10:31)
[2022-07-05] MEDS ORDERED: COZAAR100 MG PO (10:31)
[2022-07-05] MEDS ORDERED: METOPROLOL SUC100 M1 PO (10:32)
[2022-07-05] MEDS ORDERED: FERRO-TIME325 MG PO (10:32)
[2022-07-05] MEDS ORDERED: TRAD5TAB1 PO (10:32)
[2022-07-06] VITALS: BP 148/69
[2022-07-06 05:50] VITALS: BP 153/70
[2022-07-06 07:18] LABS: BASO % 0.2 % (0.0-1.0); EOS % 0.2 % (1.0-4.0); HEMATOCRIT 42.7 % (37.0-47.0); LYMPH # 0.8 10*3/uL (1.3-4.4); LYMPH % 6.1 % (27.0-41.0); MEAN CELL VOLUME 84.7 fl (81.0-99.0); MEAN CORPUSCULAR HGB 28.6 pg (27.0-31.0); MEAN CORPUSCULAR HGB CONC 33.7 g/dl (33.0-37.0); MEAN PLATELET VOLUME 8.9 fl (9.6-12.3); MONO # 0.5 10*3/uL (0.1-1.0); MONO % 3.7 % (3.0-9.0); NEUT # 11.2 10*3/uL (2.3-7.9); NEUT % 89.2 % (47.0-73.0); PLATELET COUNT AUTOMATED 327 10*3/uL (130-400); RED BLOOD COUNT 5.04 10*6/uL (4.10-5.10); RED CELL DISTRI WIDTH 16.8 % (0-14.5); WHITE BLOOD COUNT 12.6 10*3/uL (4.8-10.8)
[2022-07-06 07:34] LABS: ALKALINE PHOSPHATASE 110 U/L (46-116); BUN 14 mg/dl (9-23); CHLORIDE 99 mmol/L (98-107); CREATININE 1.03 mg/dL (0.55-1.02); POTASSIUM 3.4 mmol/L (3.4-5.1); SGPT/ALT 17 U/L (10-49); SODIUM 134 mmol/L (136-145); THYROID STIM HORMONE (HS) 2.673 uIU/ml (0.550-4.780); TOTAL PROTEIN 7.1 gm/dL (6.0-8.0)
[2022-07-06 08:00] VITALS: BP 142/59
[2022-07-06 12:00] VITALS: BP 124/50
[2022-07-06 16:00] VITALS: BP 130/52
[2022-07-06 20:00] VITALS: BP 148/63
[2022-07-07] VITALS: BP 139/64
[2022-07-07 08:00] VITALS: BP 146/69
[2022-07-07 12:00] VITALS: BP 151/59
== END 2022-07-07 13:30 | disposition home or self-care (01) | DRG 305 ==
LOC: ED 08:09 → 4E 10:20 → EDHOLD 10:20 → 4E 17:04
PROVIDERS: Emergency Medicine; ADMIT Internal Medicine; ATTEND Internal Medicine
DX: I16.1 Hypertensive emergency (principal); N17.9 Acute kidney failure, unspecified; E87.1 Hypo-osmolality and hyponatremia; F32.9 Major depressive disorder, single episode, unspecified; F41.9 Anxiety disorder, unspecified; E78.5 Hyperlipidemia, unspecified; N18.30 Chronic kidney disease, stage 3 unspecified; I12.9 Hypertensive chronic kidney disease with stage 1 through stage 4 chronic kidney disease, or unspecified chronic kidney disease; E11.22 Type 2 diabetes mellitus with diabetic chronic kidney disease; Z90.710 Acquired absence of both cervix and uterus; Z98.891 History of uterine scar from previous surgery; Z90.49 Acquired absence of other specified parts of digestive tract; Z82.49 Family history of ischemic heart disease and other diseases of the circulatory system; Z81.8 Family history of other mental and behavioral disorders

== ENCOUNTER → 2023-04-08 | Outpatient (CLI) | payer MEDICARE ==
[~2023-04-08] MED LIST changes: +CHLORTHALIDONE25 MG PO; +CIPRO250 MG PO; +FARXIGA5 M1 PO; +FERRO-TIME325 MG PO; +HYDR25T PO; +METOPROLOL SUC100 M1 PO; +PANTOPRAZOLE SO40 MG PO; +TRAD5TAB1 PO
== END | disposition home or self-care (01) ==
LOC: RESCLI 08:24
PROVIDERS: ATTEND Internal Medicine
DX: I12.9 Hypertensive chronic kidney disease with stage 1 through stage 4 chronic kidney disease, or unspecified chronic kidney disease (principal); E11.22 Type 2 diabetes mellitus with diabetic chronic kidney disease; N18.30 Chronic kidney disease, stage 3 unspecified; I48.91 Unspecified atrial fibrillation; E78.5 Hyperlipidemia, unspecified; K21.9 Gastro-esophageal reflux disease without esophagitis; F32.9 Major depressive disorder, single episode, unspecified; Z98.890 Other specified postprocedural states; Z90.49 Acquired absence of other specified parts of digestive tract; Z90.710 Acquired absence of both cervix and uterus; Z79.02 Long term (current) use of antithrombotics/antiplatelets; Z79.01 Long term (current) use of anticoagulants; Z79.899 Other long term (current) drug therapy

== ENCOUNTER → 2023-07-30 | Outpatient (CLI) | payer MEDICARE | END | disposition home or self-care (01) | LOC: MAMMO 01:09 | PROVIDERS: ATTEND Internal Medicine Nephrology | DX: Z12.31 Encounter for screening mammogram for malignant neoplasm of breast (principal) ==

== ENCOUNTER 2024-01-11 02:25 | Emergency (ER) | payer MEDICARE ==
[~2024-01-11] VITALS: Ht 154.9 cm; Wt 99.8 kg
[2024-01-11 02:44] LABS: BASO % 0.3 % (0.0-1.0); EOS # 0.4 10*3/uL (0.0-0.4); EOS % 4.1 % (1.0-4.0); HEMATOCRIT 38.9 % (37.0-47.0); LYMPH # 1.4 10*3/uL (1.3-4.4); MEAN CELL VOLUME 84.4 fl (81.0-99.0); MEAN CORPUSCULAR HGB 27.1 pg (27.0-31.0); MEAN CORPUSCULAR HGB CONC 32.1 g/dl (33.0-37.0); MEAN PLATELET VOLUME 8.6 fl (9.6-12.3); MONO # 0.6 10*3/uL (0.1-1.0); MONO % 5.8 % (3.0-9.0); NEUT # 7.4 10*3/uL (2.3-7.9); NEUT % 75.6 % (47.0-73.0); PLATELET COUNT AUTOMATED 300 10*3/uL (130-400); RED BLOOD COUNT 4.61 10*6/uL (4.10-5.10); RED CELL DISTRI WIDTH 15.9 % (0-14.5); WHITE BLOOD COUNT 9.8 10*3/uL (4.8-10.8)
[2024-01-11] MEDS ORDERED: Cyclobenzaprine Hydrochlorid 10 MG TAB PO ONE (02:50)
[2024-01-11 02:54] LABS: ACT PARTIAL THROMBO TIME 33.1 SECONDS (20.0-32.1)
[2024-01-11 03:23] LABS: POTASSIUM 3.8 mmol/L (3.4-5.1); TOTAL PROTEIN 6.6 gm/dL (6.0-8.0)
[2024-01-11] MEDS ORDERED: LIDOCAINE 1 EA PATCH T ONE (03:40)
[2024-01-11] MEDS ORDERED: LIDOCAINE PAIN1 EACH T (03:40)
[2024-01-11] MEDS ORDERED: CYCLOBENZAPRINE10 MG PO (03:40)
[2024-01-11] MEDS ORDERED: HYDROmorphONE Hydrochloride 0.5 MG/0.5 ML SYRINGE IM ONE (04:30)
[2024-01-15] MEDS ORDERED: HYDRALAZINE HYD50 MG PO (19:22)
[2024-01-15] MEDS ORDERED: AMLODIPINE BESYL5 MG PO (19:22)
== END 2024-01-11 04:15 | disposition home or self-care (01) ==
LOC: ED 02:25
PROVIDERS: Internal Medicine
DX: M62.830 Muscle spasm of back (principal); M25.551 Pain in right hip; F41.9 Anxiety disorder, unspecified; E78.00 Pure hypercholesterolemia, unspecified; E11.22 Type 2 diabetes mellitus with diabetic chronic kidney disease; I12.9 Hypertensive chronic kidney disease with stage 1 through stage 4 chronic kidney disease, or unspecified chronic kidney disease; N18.9 Chronic kidney disease, unspecified; Z90.49 Acquired absence of other specified parts of digestive tract; Z98.890 Other specified postprocedural states

== ENCOUNTER 2024-01-13 15:59 | Emergency (ER) | payer MEDICARE ==
[~2024-01-13] VITALS: Ht 154.9 cm; Wt 98.0 kg
[~2024-01-13 15:59] MED LIST changes: +LIDOCAINE PAIN1 EACH T
[2024-01-13] MEDS ORDERED: MORPHINE Sulfate 2 MG/ML SYR IV PRN (16:20)
[2024-01-13] MEDS ORDERED: Ondansetron Hydrochloride 4 MG/2 ML VIAL IV ONE (16:20)
[2024-01-13 16:34] LABS: BASO % 0.4 % (0.0-1.0); EOS # 0.3 10*3/uL (0.0-0.4); EOS % 2.6 % (1.0-4.0); HEMATOCRIT 42.6 % (37.0-47.0); LYMPH # 1.9 10*3/uL (1.3-4.4); LYMPH % 17.8 % (27.0-41.0); MEAN CORPUSCULAR HGB CONC 33.3 g/dl (33.0-37.0); MEAN PLATELET VOLUME 8.7 fl (9.6-12.3); NEUT # 7.6 10*3/uL (2.3-7.9); PLATELET COUNT AUTOMATED 329 10*3/uL (130-400); RED BLOOD COUNT 5.26 10*6/uL (4.10-5.10); RED CELL DISTRI WIDTH 16.2 % (0-14.5); WHITE BLOOD COUNT 10.9 10*3/uL (4.8-10.8)
[2024-01-13 16:43] LABS: ACT PARTIAL THROMBO TIME 33.4 SECONDS (20.0-32.1)
[2024-01-13 16:47] LABS: POTASSIUM 3.5 mmol/L (3.4-5.1)
[2024-01-13] MEDS ORDERED: CYCLOBENZAPRINE10 MG PO (18:38)
[2024-01-13] MEDS ORDERED: PERCOCET 5-3251 EACH PO (18:38)
[2024-01-15] MEDS ORDERED: AMLODIPINE BESYL5 MG PO (19:22)
[2024-01-15] MEDS ORDERED: HYDRALAZINE HYD50 MG PO (19:22)
== END 2024-01-13 18:36 | disposition home or self-care (01) ==
LOC: ED 15:59
PROVIDERS: Emergency Medicine
DX: M54.31 Sciatica, right side (principal); F41.9 Anxiety disorder, unspecified; E11.22 Type 2 diabetes mellitus with diabetic chronic kidney disease; I12.9 Hypertensive chronic kidney disease with stage 1 through stage 4 chronic kidney disease, or unspecified chronic kidney disease; N18.9 Chronic kidney disease, unspecified; E78.00 Pure hypercholesterolemia, unspecified; Z90.710 Acquired absence of both cervix and uterus; Z90.49 Acquired absence of other specified parts of digestive tract; Z98.890 Other specified postprocedural states

== ENCOUNTER → 2024-02-03 | Outpatient (CLI) | payer MEDICARE ==
[~2024-02-03] MED LIST changes: +AMLODIPINE BESYL5 MG PO; +HYDRALAZINE HYD50 MG PO; +Hydralazine Hyd25 MG PO; +PERCOCET 5-3251 EACH PO
== END | disposition home or self-care (01) ==
LOC: MRI 00:58
PROVIDERS: ATTEND Internal Medicine Nephrology
DX: M51.37 Other intervertebral disc degeneration, lumbosacral region (principal); M48.07 Spinal stenosis, lumbosacral region

== ENCOUNTER → 2024-02-11 | Outpatient (CLI) | payer MEDICARE ==
[~2024-02-11] MED LIST changes: +GADOTERATE MEGLUMINE 10 MMOL/20 ML VIAL IV ONE
== END | disposition home or self-care (01) ==
LOC: MRI 11:00
PROVIDERS: ATTEND Internal Medicine Nephrology
DX: M54.41 Lumbago with sciatica, right side (principal); G95.89 Other specified diseases of spinal cord; N26.1 Atrophy of kidney (terminal)

== ENCOUNTER → 2024-05-19 | Outpatient (CLI) | payer MEDICARE ==
[~2024-05-19] MED LIST changes: -GADOTERATE MEGLUMINE 10 MMOL/20 ML VIAL IV ONE
== END | disposition home or self-care (01) ==
LOC: LAB 13:32
PROVIDERS: ATTEND Internal Medicine Nephrology
DX: E11.22 Type 2 diabetes mellitus with diabetic chronic kidney disease (principal); N18.9 Chronic kidney disease, unspecified

== ENCOUNTER 2025-03-05 15:45 | Inpatient (IN) | payer MEDICARE ==
[~2025-03-05] VITALS: Ht 154.9 cm; Wt 104.6 kg
[2025-03-05 15:52] VITALS: BP 104/37; BP 134/37
[2025-03-05] MEDS ORDERED: METOPROLOL SUCC50 M1 PO ×2 (15:56→17:55)
[2025-03-05] MEDS ORDERED: Ondansetron Hydrochloride 4 MG/2 ML VIAL IV ONE (16:05)
[2025-03-05] MEDS ORDERED: SODIUM CHLORIDE 0.9% 1,000 ML IV ONE (16:05)
[2025-03-05 16:26] LABS: BASO # 0.0 10*3/uL (0.0-0.1); BASO % 0.2 % (0.0-1.0); EOS # 0.5 10*3/uL (0.0-0.4); EOS % 5.6 % (1.0-4.0); MEAN CELL VOLUME 83.5 fl (81.0-99.0); MEAN CORPUSCULAR HGB 25.5 pg (27.0-31.0); MEAN PLATELET VOLUME 8.8 fl (9.6-12.3); MONO # 0.8 10*3/uL (0.1-1.0); MONO % 9.5 % (3.0-9.0); NEUT # 5.5 10*3/uL (2.3-7.9); NEUT % 68.6 % (47.0-73.0); NUCLEATED RED BLOOD CELL 0.0 % (0.0-0.0); NUCLEATED RED BLOOD CELL 0.0 10*3/uL (0.0-0.0); PLATELET COUNT AUTOMATED 266 10*3/uL (130-400); RED CELL DISTRI WIDTH 17.2 % (0-14.5)
[2025-03-05 16:45] LABS: BUN 25.0 mg/dl (9-23)
[2025-03-05] MEDS ORDERED: LOSARTAN POTAS100 M1 PO (17:56)
[2025-03-05] MEDS ORDERED: PIOGLITAZONE HC45 MG PO (17:57)
[2025-03-05] MEDS ORDERED: MAG GLYCINATE100 MG PO (18:02)
[2025-03-05] MEDS ORDERED: MELOXICAM15 MG PO (18:02)
[2025-03-05] MEDS ORDERED: OXYCODONE5 M1 PO (18:04)
[2025-03-05] MEDS ORDERED: ACETAMINOPHEN500 M4 PO (18:04)
[2025-03-05] MEDS ORDERED: TIZANIDINE HCL4 MG PO (18:05)
[2025-03-05] MEDS ORDERED: POTASSIUM99 M7 PO (18:06)
[2025-03-05] MEDS ORDERED: LANTUS SOL100 UNIT/1 SC (18:06)
[2025-03-05 19:26] VITALS: BP 138/57
[2025-03-05 20:05] VITALS: BP 150/56
[2025-03-05] MEDS ORDERED: ACETAMINOPHEN 500 MG TAB PO PRN (21:15)
[2025-03-05] MEDS ORDERED: OXYCODONE HCL (IR) 5 MG TAB PO PRN (21:15)
[2025-03-05] MEDS ORDERED: hydrALAZINE hydrochloride 25 MG TAB PO SCH (22:00)
[2025-03-05] MEDS ORDERED: ATORVASTATIN CALCIUM 40 MG TABLET PO SCH (22:00)
[2025-03-05] MEDS ORDERED: RIVAROXABAN 20 MG TAB PO SCH (22:00)
[2025-03-05] MEDS ORDERED: NYSTATIN 15 GM BOT T SCH (22:00)
[2025-03-05] MEDS ORDERED: Meloxicam 15 MG TAB PO SCH (22:00)
[2025-03-05] MEDS ORDERED: METOPROLOL SUCCINATE XR 100 MG TAB PO SCH (22:00)
[2025-03-06 04:55] VITALS: BP 155/78
[2025-03-06 07:19] LABS: BASO # 0.0 10*3/uL (0.0-0.1); BASO % 0.4 % (0.0-1.0); EOS # 0.6 10*3/uL (0.0-0.4); EOS % 7.8 % (1.0-4.0); MEAN CELL VOLUME 85.5 fl (81.0-99.0); MEAN CORPUSCULAR HGB 25.6 pg (27.0-31.0); MEAN PLATELET VOLUME 9.0 fl (9.6-12.3); MONO # 0.7 10*3/uL (0.1-1.0); MONO % 9.1 % (3.0-9.0); NEUT # 5.0 10*3/uL (2.3-7.9); NEUT % 62.0 % (47.0-73.0); NUCLEATED RED BLOOD CELL 0.0 % (0.0-0.0); NUCLEATED RED BLOOD CELL 0.0 10*3/uL (0.0-0.0); PLATELET COUNT AUTOMATED 258 10*3/uL (130-400); RED CELL DISTRI WIDTH 17.3 % (0-14.5)
[2025-03-06 07:38] LABS: BUN 21 mg/dl (9-23)
[2025-03-06 08:00] VITALS: BP 132/54
[2025-03-06] MEDS ORDERED: Insulin Glargine, Recombinan 1 UNIT/0.01 ML SC SCH (10:00)
[2025-03-06] MEDS ORDERED: MAGNESIUM GLYCINATE 200 MG PO SCH (10:00)
[2025-03-06] MEDS ORDERED: METOPROLOL SUCCINATE XR 50 MG TAB PO SCH (10:00)
[2025-03-06] MEDS ORDERED: FARXIGA 10 MG PO SCH (10:00)
[2025-03-06 12:00] VITALS: BP 149/63
[2025-03-06 16:00] VITALS: BP 150/52
[2025-03-06 18:58] LABS: BILIRUBIN Negative (Negative); BLOOD Negative (Negative); CLARITY Clear (Clear); COLOR Yellow (Yellow); KETONE Negative (Negative); LEUKO ESTERASE Trace (Negative); NITRITE Positive (Negative); PH 5.5 (4.5-8.0); SPECIFIC GRAVITY 1.015 (1.001-1.030); UROBILINOGEN 0.2 E.U./dl (0.0-1.0)
[2025-03-06 19:04] LABS: BACTERIA 4+
[2025-03-06] MEDS ORDERED: HYDROmorphONE Hydrochloride 0.5 MG/0.5 ML SYRINGE IV PRN (19:40)
[2025-03-06 20:00] VITALS: BP 155/61
[2025-03-07] VITALS: BP 149/45
[2025-03-07 05:25] LABS: BUN 19 mg/dl (9-23)
[2025-03-07 05:40] VITALS: BP 162/45
[2025-03-07 06:10] LABS: BASO # 0.0 10*3/uL (0.0-0.1); BASO % 0.5 % (0.0-1.0); EOS # 0.6 10*3/uL (0.0-0.4); EOS % 8.0 % (1.0-4.0); MEAN CELL VOLUME 84.8 fl (81.0-99.0); MEAN CORPUSCULAR HGB 25.6 pg (27.0-31.0); MEAN PLATELET VOLUME 9.4 fl (9.6-12.3); MONO # 0.8 10*3/uL (0.1-1.0); MONO % 9.8 % (3.0-9.0); NEUT # 4.6 10*3/uL (2.3-7.9); NEUT % 58.4 % (47.0-73.0); NUCLEATED RED BLOOD CELL 0.0 % (0.0-0.0); NUCLEATED RED BLOOD CELL 0.0 10*3/uL (0.0-0.0); RED CELL DISTRI WIDTH 17.2 % (0-14.5)
[2025-03-07 06:30] LABS: PLATELET COUNT AUTOMATED 337 10*3/uL (130-400)
[2025-03-07 08:00] VITALS: BP 110/47
[2025-03-07 12:00] VITALS: BP 135/43
[2025-03-07 16:00] VITALS: BP 165/42
[2025-03-07 20:00] VITALS: BP 177/56
[2025-03-08] VITALS: BP 124/42
[2025-03-08] MEDS ORDERED: METHOCARBAMOL750 M1 PO (01:08)
[2025-03-08 08:00] VITALS: BP 104/46
[2025-03-08 12:00] VITALS: BP 138/50
[2025-03-08] MEDS ORDERED: CHAIR CUSHION DEVICE ONE (12:44)
[2025-03-08] MEDS ORDERED: HEEL PROTECTOR DEVICE ONE (12:44)
[2025-03-08 13:38] VITALS: BP 160/47
[2025-03-08 16:00] VITALS: BP 172/53
[2025-03-08 20:00] VITALS: BP 160/50
[2025-03-09] VITALS: BP 148/57; BP 160/50
[2025-03-09 06:30] LABS: BASO # 0.0 10*3/uL (0.0-0.1); BASO % 0.3 % (0.0-1.0); EOS # 0.7 10*3/uL (0.0-0.4); EOS % 7.4 % (1.0-4.0); MEAN CELL VOLUME 84.9 fl (81.0-99.0); MEAN CORPUSCULAR HGB 25.4 pg (27.0-31.0); MEAN PLATELET VOLUME 9.0 fl (9.6-12.3); MONO # 1.0 10*3/uL (0.1-1.0); MONO % 10.8 % (3.0-9.0); NEUT # 5.3 10*3/uL (2.3-7.9); NEUT % 59.7 % (47.0-73.0); NUCLEATED RED BLOOD CELL 0.0 % (0.0-0.0); NUCLEATED RED BLOOD CELL 0.0 10*3/uL (0.0-0.0); PLATELET COUNT AUTOMATED 355 10*3/uL (130-400); RED CELL DISTRI WIDTH 16.9 % (0-14.5)
[2025-03-09 06:55] LABS: BUN 18 mg/dl (9-23); SGPT/ALT 14 U/L (5-49)
[2025-03-09 08:00] VITALS: BP 155/53
[2025-03-09 12:00] VITALS: BP 146/45
== END 2025-03-09 15:51 | DRG 556 ==
LOC: ED 15:45 → 4E 17:29 → EDHOLD 17:29 → 4E 19:49
PROVIDERS: Emergency Medicine; ADMIT Internal Medicine; ATTEND Internal Medicine
DX: M25.552 Pain in left hip (principal); N18.30 Chronic kidney disease, stage 3 unspecified; F41.9 Anxiety disorder, unspecified; M13.852 Other specified arthritis, left hip; E78.5 Hyperlipidemia, unspecified; I12.9 Hypertensive chronic kidney disease with stage 1 through stage 4 chronic kidney disease, or unspecified chronic kidney disease; I48.91 Unspecified atrial fibrillation; E11.22 Type 2 diabetes mellitus with diabetic chronic kidney disease; F32.9 Major depressive disorder, single episode, unspecified; R26.2 Difficulty in walking, not elsewhere classified; K59.00 Constipation, unspecified; K21.9 Gastro-esophageal reflux disease without esophagitis; M62.838 Other muscle spasm; Z96.642 Presence of left artificial hip joint; Z79.899 Other long term (current) drug therapy; Z79.01 Long term (current) use of anticoagulants; Z79.2 Long term (current) use of antibiotics; Z98.891 History of uterine scar from previous surgery; Z90.49 Acquired absence of other specified parts of digestive tract; Z82.49 Family history of ischemic heart disease and other diseases of the circulatory system; Z81.8 Family history of other mental and behavioral disorders; Z82.5 Family history of asthma and other chronic lower respiratory diseases

== ENCOUNTER → 2025-05-17 | Outpatient (CLI) | payer MEDICARE ==
[~2025-05-17] MED LIST changes: +ACETAMINOPHEN500 M4 PO; +LANTUS SOL100 UNIT/1 SC; +LOSARTAN POTAS100 M1 PO; +MAG GLYCINATE100 MG PO; +MELOXICAM15 MG PO; +METHOCARBAMOL750 M1 PO; +METOPROLOL SUCC50 M1 PO; +OXYCODONE5 M1 PO; +PIOGLITAZONE HC45 MG PO; +POTASSIUM99 M7 PO; +TIZANIDINE HCL4 MG PO
== END | disposition home or self-care (01) ==
LOC: US 04-23 14:00
PROVIDERS: ATTEND Internal Medicine
DX: N28.1 Cyst of kidney, acquired (principal); R74.8 Abnormal levels of other serum enzymes; Z90.49 Acquired absence of other specified parts of digestive tract